=== PATIENT | female | born 1955 | race Hispanic/Latino ===

== ENCOUNTER → 2021-01-22 | Day surgery (SDC) | payer OTHER ==
[2021-01-20 10:56] LABS: BASOPHILS # (AUTO) 0.1 (0.0-0.1); EOSINOPHILS # (AUTO) 0.3 (0.0-0.4); HEMATOCRIT 36.8 % (34.2-44.1); HEMOGLOBIN 11.8 g/dL (12.0-16.0); LYMPHOCYTES # (AUTO) 2.9 (1.0-3.2); LYMPHOCYTES % 35.7 % (18.0-39.1); MEAN CORPUSCULAR HEMOGLOBIN 30.5 pg (28-32); MEAN CORPUSCULAR HGB CONC 32.1 g/dL (31-35); MEAN CORPUSCULAR VOLUME 95.1 fL (81-99); MONOCYTES # (AUTO) 0.6 (0.2-0.8); MONOCYTES % 7.3 % (4.4-11.3); NEUTROPHILS # (AUTO) 4.2 (2.1-6.9); NEUTROPHILS % 51.8 % (38.7-80.0); PLATELET COUNT 255 x10e3/uL (140-360); RED BLOOD COUNT 3.87 x10e6/uL (3.6-5.1); RED CELL DISTRIBUTION WIDTH 13.2 % (11.7-14.4)
[~2021-01-22] MED LIST: FENTANYL CITRATE/PF 100MCG/2 ML INJ ONE; LIDOCAINE HCL 2% LOCAL INJ 5 ML SDV VIAL INJ ONE; LOSARTAN POTASS25 MG PO; METFORMIN HCL500 MG PO; MIDAZOLAM HCL 2 MG/2 ML VIAL ONE; PROPOFOL IV EMULSION 10 MG/ML 20 ML VIAL ONE; TRESIBA100 UNIT/1 SC
[2021-01-22 10:45] VITALS: BP 128/77
== END | disposition home or self-care (01) ==
LOC: OR 07:12
PROVIDERS: ATTEND Internal Medicine Gastroenterology
DX: K29.50 Unspecified chronic gastritis without bleeding (principal); B96.81 Helicobacter pylori [H. pylori] as the cause of diseases classified elsewhere; K44.9 Diaphragmatic hernia without obstruction or gangrene; I10 Essential (primary) hypertension; E11.9 Type 2 diabetes mellitus without complications; K21.9 Gastro-esophageal reflux disease without esophagitis; Z01.810 Encounter for preprocedural cardiovascular examination; Z01.812 Encounter for preprocedural laboratory examination; Z20.822 Contact with and (suspected) exposure to COVID-19; Z88.8 Allergy status to other drugs, medicaments and biological substances; Z79.4 Long term (current) use of insulin
CPT/HCPCS: 36415; 43239; 82948; 85025; 93005; J2001; J2250; J3010; U0002

== ENCOUNTER → 2021-05-13 | Outpatient (CLI) | payer OTHER ==
[~2021-05-13] MED LIST changes: -FENTANYL CITRATE/PF 100MCG/2 ML INJ ONE; -LIDOCAINE HCL 2% LOCAL INJ 5 ML SDV VIAL INJ ONE; -MIDAZOLAM HCL 2 MG/2 ML VIAL ONE; -PROPOFOL IV EMULSION 10 MG/ML 20 ML VIAL ONE
== END ==
LOC: MAMMO 15:40
PROVIDERS: ATTEND Internal Medicine
DX: Z12.31 Encounter for screening mammogram for malignant neoplasm of breast (principal)
CPT/HCPCS: 77067

== ENCOUNTER → 2021-11-05 | Outpatient (CLI) | payer OTHER | LOC: MAMMO 09:23 | PROVIDERS: ATTEND Internal Medicine | DX: R92.8 Other abnormal and inconclusive findings on diagnostic imaging of breast (principal) ==

== ENCOUNTER → 2021-12-01 | Outpatient (CLI) | payer OTHER | LOC: DX 11:02 | PROVIDERS: ATTEND Internal Medicine | DX: M47.816 Spondylosis without myelopathy or radiculopathy, lumbar region (principal); R39.11 Hesitancy of micturition | CPT/HCPCS: 72110 ==

== ENCOUNTER → 2022-01-20 | Outpatient (CLI) | payer OTHER | LOC: DX 10:10 | PROVIDERS: ATTEND Internal Medicine | DX: M81.8 Other osteoporosis without current pathological fracture (principal) | CPT/HCPCS: 77080 ==

== ENCOUNTER 2025-01-17 05:54 | Observation (INO) | payer MEDICARE ==
[2025-01-16 12:00] LABS: BASOPHILS % 0.5 % (0.0-1.0); EOSINOPHILS % 3.3 % (0.0-6.0); LYMPHOCYTES % 19.9 % (18.0-39.1); MONOCYTES % 6.6 % (4.4-11.3); NEUTROPHILS % 69.3 % (38.7-80.0); RED CELL DISTRIBUTION WIDTH 13.6 % (11.7-14.4)
[2025-01-16 12:29] LABS: EST GLOMERULAR FILTRATION RATE 81.0 ML/MIN (>=60)
[2025-01-16 12:45] LABS: INR 0.83
[~2025-01-17] VITALS: Ht 144.8 cm; Wt 51.9 kg
[~2025-01-17 05:54] MED LIST changes: +AMLODIPINE BESYL5 MG PO; +BENICAR HCT 401 EAC1; +HYDROCODON-ACE1 EA11 PO; +JARDIANCE10 MG PO; +LEXAPRO10 MG PO; +ULTRAM 50MG50 MG PO
[2025-01-17] MEDS: LACTATED RINGER'S 1,000 ML ONE (07:01)
[2025-01-17] MEDS: CEFAZOLIN SODIUM 2 GM ONE (07:02)
[2025-01-17] MEDS: DEXTROSE 5% 250ML 250 ML IV ONE (07:10)
[2025-01-17] MEDS ORDERED: FENTANYL CITRATE/PF 100MCG/2 ML INJ ONE (07:17)
[2025-01-17] MEDS ORDERED: PROPOFOL IV EMULSION 10 MG/ML 20 ML VIAL ONE (07:17)
[2025-01-17] MEDS ORDERED: SEVOFLURANE INHAL SOLN 250 ML PEN BTL ONE (07:17)
[2025-01-17] MEDS ORDERED: ROCURONIUM BROMIDE 1 ML IV ONE (07:17)
[2025-01-17] MEDS ORDERED: LIDOCAINE HCL 2% LOCAL INJ 5 ML SDV VIAL INJ ONE (07:17)
[2025-01-17] MEDS ORDERED: ACETAMINOPHEN 1000 MG/100 ML 100 ML IV ONE (07:17)
[2025-01-17] MEDS ORDERED: FAMOTIDINE 20 MG/2 ML VIAL IV ONE (08:28)
[2025-01-17] MEDS ORDERED: ONDANSETRON HCL INJ 2MG/ML 2ML 2 MG/ML VIAL ONE (08:28)
[2025-01-17] MEDS ORDERED: DEXAMETHASONE SOD PHOS INJ 4 MG/ML SDV ONE (08:28)
[2025-01-17] MEDS ORDERED: KETAMINE HCL INJ 50 MG/ML 10 ML VIAL ONE (08:30)
[2025-01-17] MEDS ORDERED: SUGAMMADEX SODIUM 200 MG/2 ML VIAL IV ONE (09:31)
[2025-01-17] MEDS ORDERED: CARISOPRODOL 350 MG TAB PO PRN (09:45)
[2025-01-17] MEDS ORDERED: PROMETHAZINE HCL (IM) 25 MG/ML VIAL IM PRN (09:45)
[2025-01-17] MEDS ORDERED: ACETAMINOPHEN 325 MG TAB PO PRN (09:45)
[2025-01-17] MEDS ORDERED: MAGNESIUM/ALUMINUM/SIMETHICONE 30 ML UDC PO PRN (09:45)
[2025-01-17] MEDS ORDERED: Morphine 10mg syringe 10 MG/ML INJ IM PRN (09:45)
[2025-01-17] MEDS ORDERED: ONDANSETRON HCL INJ 2MG/ML 2ML 2 MG/ML VIAL IV PRN (09:45)
[2025-01-17] MEDS: LACTATED RINGER'S 1,000 ML IV SCH (09:45)
[2025-01-17 11:15] VITALS: BP 137/81; PULSE 74; RESP 16; TEMP 97; O2SAT 99
[2025-01-17 11:29] VITALS: BP 136/76; PULSE 86; RESP 16; TEMP 97.4; O2SAT 100
[2025-01-17] MEDS: OXYCODONE/ACETAMINOPHEN 5-325 1 EACH TABLET PO PRN (12:48)
[2025-01-17 15:46] VITALS: BP 128/70; PULSE 81; RESP 17; TEMP 97.8; O2SAT 96
[2025-01-17] MEDS: METFORMIN HCL 500 MG TAB PO SCH (16:47)
[2025-01-17] MEDS: SODIUM CHLORIDE 0.9% 250ML 250 ML ONE (16:52)
[2025-01-17 20:00] VITALS: BP 105/58; PULSE 76; RESP 20; TEMP 98.1; O2SAT 96
[2025-01-17] MEDS ORDERED: ZOLPIDEM TARTRATE 5 MG TAB PO PRN (21:00)
[2025-01-18] VITALS: BP 119/61; PULSE 83; RESP 20; TEMP 98; O2SAT 100
[2025-01-18 01:01] VITALS: BP 131/78; PULSE 83; RESP 20; TEMP 98.7; O2SAT 100
[2025-01-18 04:00] VITALS: BP 145/66; PULSE 89; RESP 20; TEMP 98; O2SAT 100
[2025-01-18] MEDS: OXYCODONE/ACETAMINOPHEN 5-325 1 EACH TABLET PO PRN (04:29)
[2025-01-18 08:00] VITALS: BP 137/68; PULSE 93; RESP 17; TEMP 98.6; O2SAT 97
[2025-01-18] MEDS: HYDROMORPHONE 2MG/ML IV PRN (09:00)
[2025-01-18] MEDS: INSULIN DEGLUDEC 10 UNIT SQ SCH (09:00)
[2025-01-18] MEDS: AMLODIPINE BESYLATE 5 MG TAB PO SCH (09:02)
[2025-01-18] MEDS: EMPAGLIFLOZIN 10 MG TABLET PO SCH (09:02)
[2025-01-18] MEDS: ESCITALOPRAM OXALATE 10 MG TAB PO SCH (09:02)
[2025-01-18] MEDS: OLMESARTAN 20 MG TAB PO SCH (09:03)
[2025-01-18 09:12] VITALS: BP 137/68; PULSE 93; RESP 17; TEMP 98.6; O2SAT 97
== END 2025-01-18 13:15 | disposition home or self-care (01) ==
LOC: OR 05:54 → PACU V 09:47 → MED/SURG3 11:18
PROVIDERS: ADMIT Neurological Surgery; ATTEND Neurological Surgery
DX: M48.062 Spinal stenosis, lumbar region with neurogenic claudication (principal); E11.9 Type 2 diabetes mellitus without complications; Z79.84 Long term (current) use of oral hypoglycemic drugs; Z79.4 Long term (current) use of insulin; I10 Essential (primary) hypertension; E78.5 Hyperlipidemia, unspecified; M81.0 Age-related osteoporosis without current pathological fracture; R12 Heartburn; Z01.810 Encounter for preprocedural cardiovascular examination; Z01.812 Encounter for preprocedural laboratory examination; Z01.818 Encounter for other preprocedural examination
CPT/HCPCS: 36415 ×3; 63047; 63048; 71046; 72020; 80048; 82948 ×2; 85025; 85610; 85730; 86850; 86900; 88304; 88311; 93005; A4467; G0378 ×2; J0131; J0690 ×2; J1100; J1171; J1308; J2003; J2405; J2704; J3010; J7050; J7121